=== PATIENT | female | born 1970 | race Caucasian/White ===

== ENCOUNTER 2020-01-25 05:40 | Day surgery (SDC) | payer OTHER ==
[2020-01-25] MEDS ORDERED: PROPOFOL 200 MG/20 ML VIAL IV ONE (07:00)
[2020-01-25] MEDS ORDERED: LIDOCAINE 1% 10 ML VIAL INJ ONE (07:00)
[2020-01-25] MEDS: LACTATED RINGERS 1,000 ML ONE (10:05)
[2020-01-25 12:57] VITALS: BP 146/78; TEMP 97.7; O2SAT 99
--- NOTE | 2020-01-25 13:07 | OP ---
DATE OF PROCEDURE: 01/25/20 PREOPERATIVE DIAGNOSIS: 1. Constipation. 2. Bowel changes. 3. Screening. POSTOPERATIVE DIAGNOSIS: 1. Colonic polyp. 2. Possible rectosigmoid inflammation. PROCEDURE: 1. Colonoscopy with polypectomy x1, 1.5 mm, and random biopsy x2 of rectosigmoid junction. SURGEON: Joe Fontaine MD ANESTHESIA: General. FINDINGS: As described. CONDITION: Stable. PLAN: Discharge. INDICATION: As stated. PROCEDURE: General anesthesia was induced in the lateral position. Digital rectal exam was normal. The colonoscope was inserted. There were some curves in the pelvis which we got around and made it to the cecum. In the cecum itself, there was a 1.5 mm polyp. This was excised with forceps. Upon withdrawal, the scope revealed no other evidence of polyps. In the rectosigmoid, there was some possible inflammation, a little thickened mucosa. The sigmoid seemed muscular and firm. This explains the difficulty getting through in the beginning. We did do a couple of random biopsies right at the rectosigmoid junction to see if this is a pathological finding or possibly from the rubbing of the scope during the procedure as it was difficult to get through that area. The patient tolerated the procedure and was taken to Recovery to be discharged. #[id number] MTDD
== END 2020-01-25 12:10 | disposition home or self-care (01) ==
LOC: AMB 05:40
PROVIDERS: ATTEND Surgery
DX: R19.4 Change in bowel habit (principal); D12.0 Benign neoplasm of cecum; K59.00 Constipation, unspecified; Z85.828 Personal history of other malignant neoplasm of skin; Z79.899 Other long term (current) drug therapy